=== PATIENT | female | born 1935 | race Caucasian/White ===

== ENCOUNTER 2018-12-19 20:08 | Emergency (ER) | payer MEDICARE, OTHER ==
--- NOTE | 2018-12-20 09:33 | RAD ---
TWO VIEWS OF THE RIGHT HIP: DATE: 12/19/2018. COMPARISON: None. HISTORY: Fall, trauma, pain. FINDINGS: The bones are demineralized, which limits assessment for nondisplaced fracture. There is postoperati ve hardware associated with the right femur which includes a screw traversing the femoral neck and an intramedullary cristopher extending to the level of the distal right femur. No displaced fracture/dislocat ion or evidence of hardware failure. There is atherosclerotic calcification within the medial thigh. IMPRESSION: Osteopenia limiting assessment for nondisplaced fracture. Evidence of prior open reduction internal fixation with no definite acute fracture or evidence of dislocation seen. POS: ILDA
--- NOTE | 2018-12-20 09:33 | RAD ---
FRONTAL RADIOGRAPH PELVIS: 12/19/2018 HISTORY: Fall. Trauma. Pain. COMPARISON: None. FINDINGS: There is evidence of prior open reduction and internal fixation of the proximal right femur. The bon es are demineralized, limiting assessment for a nondisplaced fracture. There appear to be fractures of the superior and inferior pubic rami on the right, age indeterminate. No widening of the sacroili ac joints or pubic symphysis. IMPRESSION: Findings suggesting age indeterminate fractures of the superior and inferior pubic rami on the right. CT examination of the pelvis suggested for further assessment. POS: CAMILA
--- NOTE | 2018-12-20 09:33 | CT ---
CT PELVIS: 12/19/2018 HISTORY: Injury. Trauma. Right hip pain. COMPARISON: None. TECHNIQUE: Axial CT imaging, at 3.75 mm intervals, through the pelvis, with coronal and sagittal reformatted irene ging. FINDINGS: There is extensive atherosclerotic calcification of the imaged abdominal aorta, as well as the arteri al structures of the pelvis. The bones are severely demineralized, which limits assessment for a nondisplaced fracture. There is no widening of the pubic symphysis or the sacroiliac joints. No discrete fracture of the sacrum is noted. There is multilevel disk space narrowing, vacuum disk formation, and facet hypertrophic change within the imaged lumbar spine. The urinary bladder is mildly distended. Distal colonic diverticulosis without evidence for divertic ulitis is seen. The patient is status post open reduction and internal fixation of the proximal right femur, with a s crew traversing the femoral neck and an intramedullary cristopher. There is an acute, minimally displaced fracture involving the anterior and lateral cortex, at the bas e of the right greater trochanter of the proximal right femur, anteriorly. This is best seen on axia l image #86 of series 400. Neither hip appears dislocated. There is an old fracture of the inferior pubic ramus and the superior pubic ramus, on the right. There is soft tissue swelling on the basis of edema, involving the quadriceps musculature on the righ t, with probable associated intramuscular hematoma, incompletely imaged on this examination. Nonobstructing calculus noted in the lower pole of the right kidney, measuring in the 3 mm range. IMPRESSION: 1. Comminuted, mildly displaced fracture seen involving the anterior cortex of the proximal right fe mur, at the anterior base of the right greater trochanter. 2. Old fractures of the superior and inferior pubic ramus on the right. 3. Swelling/enlargement of the quadriceps musculature on the right, with probable associated intramu scular hematoma. 4. Severe atherosclerotic disease. 5. Severe osteopenia. POS: CAMILA
== END 2018-12-20 00:13 | disposition home or self-care (01) ==
LOC: ERS 20:08
DX: S72.111A Displaced fracture of greater trochanter of right femur, initial encounter for closed fracture (principal); I10 Essential (primary) hypertension; F17.210 Nicotine dependence, cigarettes, uncomplicated; F03.90 Unspecified dementia, unspecified severity, without behavioral disturbance, psychotic disturbance, mood disturbance, and anxiety; Z79.899 Other long term (current) drug therapy; W18.09XA Striking against other object with subsequent fall, initial encounter
CPT/HCPCS: 72170; 72192

== ENCOUNTER 2019-05-25 01:17 | Inpatient (IN) | payer MEDICARE ==
[2019-05-25] MEDS ORDERED: Acetaminophen 325 MG TAB PO PRN ×2 (01:50→18:00)
[2019-05-25] MEDS ORDERED: traMADol HCl 50 MG TAB PO PRN ×3 (01:52→20:02)
[2019-05-25] MEDS ORDERED: Ketorolac Tromethamine 30 MG/ML VIAL ONE (01:53)
[2019-05-25] MEDS ORDERED: Morphine 2 MG/ML SYRINGE ONE (01:53)
[2019-05-25] MEDS ORDERED: Potassium Chloride 40 MEQ in Sodium Chloride 0.9% 250 ML 250 ML IVPB SCH (02:30)
[2019-05-25] MEDS ORDERED: Potassium Chloride 20 MEQ in Sodium Chloride 0.9% 250 ML 250 ML IVPB SCH (02:30)
[2019-05-25] MEDS ORDERED: hydrALAZINE 20 MG/ML VIAL SLOW IVP PRN (02:56)
[2019-05-25] MEDS ORDERED: HumaLOG 300 UNITS/3 ML VIAL SC PRN (02:56)
[2019-05-25] MEDS ORDERED: Ondansetron PF 4 MG/2 ML Vial IVP PRN (02:56)
[2019-05-25] MEDS ORDERED: Dextrose 5% in Water 1,000 ML IV PRN (02:56)
[2019-05-25] MEDS ORDERED: Dextrose 50% Abboject 50 ML SYRINGE SLOW IVP PRN (02:56)
[2019-05-25 03:05] LABS: Bacteria/HPF 3+ HPF (None Seen); Bilirubin Negative (Negative); Blood, Urine Negative (Negative); Clarity Turbid (Clear); Glucose, Urine (Dipstick) Normal (Negative); Leukocyte Negative Leu/uL (Negative); Nitrite 2+ (Negative); Protein, Urine (Dipstick) Negative (Neg-Trace); RBC/HPF 0-3 HPF (0-3); Squamous Epithelial 0-3 HPF (0-3); Urobilinogen Normal mg/dL (Less than 2); WBC/HPF 0-3 HPF (0-3)
--- NOTE | 2019-05-25 03:07 | HP ---
HISTORY OF PRESENT ILLNESS: Ms. Mcleod is an 84-year-old female who came in to evaluation of left hip pain after a fall at home. The patient's daughter reports the patient was using slipper and her slipper got caught on the carpet and she fell over. She did not lose consciousness or hit her head. After the fall, she did complain of pain from the left hip and could not walk or bear weight. The patient was transferred from [facility]. Upon arrival, the patient is awake and alert. GCS 15. Vitals stable. Complain of left hip pain. The pain is 7/10. She does not complain of any other associated symptoms. PAST MEDICAL HISTORY: The patient has a past medical history of hypertension, managed with amlodipine 10 mg a day. PAST SURGICAL HISTORY: ORIF of left shoulder, right hip, and bilateral wrists. ALLERGIES: NO KNOW ALLERGIES. CURRENT MEDICATIONS: Amlodipine 10 mg daily. REVIEW OF SYSTEMS: Noncontributory except per HPI. PHYSICAL EXAMINATION: GENERAL: The patient is lying down in bed, in no acute distress. The patient is alert, oriented x3. GCS 15. HEENT: Atraumatic. No bruising. No deformity. Pupils equally round, reactive to light. NECK: Atraumatic. Trachea midline. CHEST: Atraumatic. No bruising. No deformity. No tender to touch. LUNGS: Breath sounds clear bilaterally. CARDIOVASCULAR: Regular rate and rhythm. ABDOMEN: Soft, nondistended. Normal bowel sounds, but normal alignment. No tender to touch. EXTREMITIES: Upper extremity neurovascularly intact. Normal range of motion. Right lower extremity neurovascularly intact. Normal range of motion. Left lower extremity, left hip limited range of motion due to pain. Left lower extremity, external rotation neurovascularly intact. INITIAL LABORATORY WORKUP: From [facility] show kidney function normal. Hypokalemia. Liver function normal. EKG show normal sinus rhythm, 70 an hour. DIAGNOSES: 1. Status post mechanical ground level fall at home. 2. Left hip fracture. 3. History of hypertension, status post open reduction and internal fixation of left shoulder, open reduction and internal fixation of right hip, and bilateral wrist fracture. PLANS: The patient will be admitted to [place] [id number]. Start to initiate pain control , initiate nonpharmacology, DVT prophylaxis, initiate gastritis prophylaxis. Orthopedics, Dr. Sears, was notified per Dr. Lambert. Dr. Sears plan to see patient in the morning and schedule her to take her to go to the OR. Job ID: [id number] [facility]
[2019-05-25 03:28] LABS: #Eosinphils 0.1 thou/uL (0.0-0.7); #Lymphocytes 1.1 thou/uL (1.20-3.40); #Monocytes 0.6 thou/uL (0.11-0.59); #Neutrophils 5.4 thou/uL (1.40-6.50); %Basophils 0.2 % (0.0-1.0); %Eosinophils 0.9 % (0.0-10.0); %Lymphocytes 15.8 % (21.0-51.0); %Monocytes 7.9 % (0.0-10.0); %Neutrophils 75.2 % (42.0-75.0); Hemoglobin 12.2 g/dL (12.0-16.0); Mean Corpuscular HGB CONC 34.1 g/dL (32.0-36.0); Mean Corpuscular Hemoglobin 32.2 pg (27.0-31.0); Mean Corpuscular Volume 94.4 fL (78.0-98.0); Mean Platelet Volume 8.3 fL (7.4-10.4); Platelet Count 192 thou/uL (130-400); RBC Distribution Width 12.3 % (11.5-14.5); Red Blood Cell (RBC) Count 3.79 mill/uL (4.20-5.40); White Blood Cell (WBC) Count 7.1 thou/uL (4.8-10.8)
[2019-05-25 03:49] LABS: Anion Gap 13 mmol/L (10-20); BUN (Urea Nitrogen) 12 mg/dL (9.8-20.1); Calc. Creatinine Clearance 30 mL/min (70-130); Carbon Dioxide 22 mmol/L (23-31); Chloride 105 mmol/L (98-107); Estimated GFR-MDRD 71; Glucose 111 mg/dL (83-110); Magnesium 1.8 mg/dL (1.6-2.6); Phosphorus 3.2 mg/dL (2.3-4.7); Potassium 4.1 mmol/L (3.5-5.1); Sodium 136 mmol/L (136-145)
[2019-05-25] MEDS: Acetaminophen 1,000 MG in Premix Bag 1 BAG IVPB SCH ×3 (05:31→18:26)
[2019-05-25] MEDS: Ketorolac Tromethamine 30 MG/ML VIAL IVP SCH ×3 (05:32→19:25)
--- NOTE | 2019-05-25 07:49 | RAD ---
EXAM: CHEST ONE VIEW HISTORY: Left hip fracture COMPARISON: 02/21/2011 FINDINGS: Previously noted central venous catheter has been removed. Cardiac silhouette is magnified by project ion but probably within normal limits. Pulmonary vasculature is within normal limits. Lungs are hyperexpanded, but no consolidation or pleural fluid is seen. A few scattered calcified granulomata a re identified. Post surgical changes left proximal humerus are again seen. Osteopenia is present. Vascular calcifications are seen in the thoracic aorta. There does appear to be mild height loss of t he L1 and L2 vertebral bodies. These compression deformities were present on MR lumbar spine in 2016. IMPRESSION: No acute cardiopulmonary process.
[2019-05-25] MEDS ORDERED: ceFAZolin 1 GM/D5W 1 GM in Premix Bag 1 BAG IVPB SCH ×2 (08:45→23:00)
--- NOTE | 2019-05-25 08:59 | RAD ---
LEFT HIP TWO VIEWS: HISTORY: Left hip pain. FINDINGS: There is an intertrochanteric fracture involving the left proximal femur with associated foreshorteni ng. There are postop changes and metallic hardware in the right proximal femur. Old fractures of th e right superior and inferior pubic rami are present. IMPRESSION: Acute intertrochanteric fracture of the left femur. POS: OFF
[2019-05-25] MEDS ORDERED: Amlodipine 10 MG TAB PO SCH (09:00)
[2019-05-25] MEDS ORDERED: Famotidine/PF 20 mg/2ml Vial SLOW IVP SCH (09:00)
[2019-05-25] MEDS: Gabapentin 100 MG CAP PO SCH ×2 (09:04→22:33)
[2019-05-25] MEDS: Senokot S 8.6-50 MG TAB PO SCH ×2 (09:04→22:33)
[2019-05-25] MEDS: Polyethylene Glycol 3350 17 GM Packet PO SCH (09:04)
--- NOTE | 2019-05-25 09:20 | CON ---
DATE OF CONSULTATION: 05/25/2019 This is Amarilys Chakraborty PA-C dictating a report for Julio Sears MD. REQUESTING PHYSICIAN: Trauma Service Team. CONSULT PHYSICIAN: Julio Sears MD REASON FOR CONSULTATION: Left hip fracture. HISTORY OF PRESENT ILLNESS: This is an 84-year-old female, who is status post mechanical fall at home. The patient's daughter reports that she caught her shoe on the carpet and fell over. This was last night. She presented to the [facility] Emergency Department. She was then transferred to our facility once workup revealed a left hip fracture. We have been consulted for this reason. The patient has been able to walk or bear weight. She reports left hip pain. No numbness. No tingling. No head injury or other complaints at this time. Daughter is currently at bedside with the patient. PAST MEDICAL HISTORY: Significant for hypertension. PAST SURGICAL HISTORY: Includes ORIF of left shoulder, ORIF of right hip, and bilateral wrist surgeries. ALLERGIES: NO KNOWN DRUG ALLERGIES. FAMILY HISTORY: Reviewed and noncontributory. SOCIAL HISTORY: The patient is a half a pack a day smoker and has been for over 20 years. Denies any alcohol or illicit drug use. Her daughter lives with her. She is an independent ambulator. REVIEW OF SYSTEMS: Ten-point review of systems conducted and otherwise negative except for stated above. PHYSICAL EXAMINATION: VITAL SIGNS: Show temperature 97.7, pulse of 96, respiratory rate of 16, O2 saturation of 96% on room air, and blood pressure of 120/71. GENERAL: The patient is awake and alert. She is lying supine in bed. Her daughter is present in the hospital room at this time. She is in no apparent distress. She does answer questions appropriately. HEENT: Head is normocephalic and atraumatic. NECK: Supple. Trachea midline. LUNGS: Breathing is nonlabored. EXTREMITIES: Evaluation of all 4 extremities shows the left lower extremity to be externally rotated and shortened at this time. She is able to move her toes. Sensation intact distally. Capillary refill 3 seconds. Range of motion not assessed in this lower extremity. Other 3 extremities all evaluated. No obvious deformities are noted. No signs of injury. RADIOGRAPHIC IMAGING: X-rays were unavailable from [facility]. We have obtained new films at our facility. These show a base of the low femoral neck fracture that appears to extend somewhat intertrochanterically. There is displacement and shortening. ASSESSMENT: Left hip fracture. PLAN: The patient has been n.p.o. She has been cleared by the Trauma Service Team. We would like to proceed with surgery this afternoon. This will include a DHS device to a left hip fracture. Risks, benefits, and alternatives of surgery discussed at length with the patient and her family today. They verbalized understanding and are amenable to this plan of care. We will proceed with surgery later this afternoon. Postoperatively, she will return back to the surgical floor, where she worked with Physical and Occupational Therapy. We have discussed smoking cessation today in order for her fracture to heal appropriately. She does verbalize understanding of this. Job ID: [id number]
[2019-05-25] MEDS ORDERED: Magnesium 2 GM/50 ML 2 GM in Premix Bag 1 BAG IVPB SCH (11:00)
--- NOTE | 2019-05-25 11:06 | PRG ---
DATE OF SERVICE: 05/25/2019 84-year-old female with past medical history of hypertension, presenting for left hip fracture s/p ground level fall. SUBJECTIVE: The patient was admitted last night for a fall at home after her slipper got stuck and she tripped on the carpet. Her left hip pain is better today than yesterday. She denies any shortness of breath, chest pain, nausea, vomiting, or abdominal pain. Her daughter is present at bedside and states that she lives with the patient. The patient was going to get an x-ray this morning per Ortho's recommendations. OBJECTIVE: VITAL SIGNS: Stable. Temperature 97.8, heart rate 62, blood pressure 117/67, and saturating 96% on room air. However, later this morning she was at 92% on 2 L nasal cannula. GENERAL: Frail appearing, alert and oriented CARDIAC: Regular rate and rhythm. No murmurs. RESPIRATORY: No respiratory distress. Clear to auscultation bilaterally. ABDOMEN: Nondistended and soft. Active bowel sounds. EXTREMITIES: No edema. : Crespo catheter in place. LABORATORY DATA: WBC 7.1, hemoglobin 12.2, hematocrit 35.8, and platelets 182. Electrolytes; sodium 136, potassium 4.1, chloride 105, bicarb 22, BUN 12, creatinine 0.78, glucose 111, calcium 8.0, phosphorus 3.2, and magnesium 1.8. Hip x-ray: acute intertrochanteric fracture of the left femur. ASSESSMENT: 1. Left hip fracture, intertrochanteric 2. Hypertension. PLAN: The patient is to go to the operating room today for her left hip fracture. She is on DVT prophylaxis, gastritis prophylaxis, and on pain medicine. We will follow up with her labs tomorrow after surgery to continue management of her care. This patient was seen, examined, and discussed with Dr. Doherty on rounds, the admitting physician, who agrees with the assessment and plan Amy Cade MD PGY1 Job ID: [id number] [facility]
[2019-05-25] MEDS ORDERED: PROPOFOL 200 MG/20 ML VIAL ONE (16:59)
[2019-05-25] MEDS ORDERED: ePHEDrine 50 MG/ML VIAL ONE (16:59)
[2019-05-25] MEDS ORDERED: Ibuprofen 600 MG TAB PO SCH (18:00)
[2019-05-25] MEDS ORDERED: Fentanyl 100 MCG/2 ML VIAL ONE (20:31)
[2019-05-25] MEDS ORDERED: Propofol 1,000 MG/100 ML VIAL IV ONE (20:31)
[2019-05-25] MEDS ORDERED: Bupivacaine 0.75% W/DEXTROSE 8.25% 2 ML AMP ONE (20:31)
[2019-05-25] MEDS ORDERED: Promethazine HCl 25 MG/ML VIAL SLOW IVP PRN (22:00)
[2019-05-25] MEDS ORDERED: Ondansetron HCl/PF 4 MG/2 ML Vial IVP PRN (22:00)
[2019-05-25] MEDS ORDERED: Promethazine HCl 25 MG/ML VIAL IM PRN (22:00)
--- NOTE | 2019-05-25 22:23 | RAD ---
XR Hip Lt 2-3 View History: Hip screw placement Comparison: Radiograph same day Findings: 3 fluoroscopic images were obtained. Satisfactory appearance of a dynamic hip screw through the left femoral neck with a second partially threaded cannulated screw. Impression: Satisfactory postoperative appearance. Total fluoroscopy time: 50.8 seconds.
[2019-05-25] MEDS ORDERED: CEFAZOLIN 1 GM in Sodium Chloride 0.9% 100 ML IVPB SCH (22:30)
[2019-05-25] MEDS: Ibuprofen 600 MG TAB PO SCH (22:33)
[2019-05-25] MEDS: Atorvastatin Calcium 10 MG TAB PO SCH (22:34)
[2019-05-25] MEDS: Acetaminophen 500 MG TAB PO SCH (23:34)
--- NOTE | 2019-05-26 00:09 | PRG ---
DATE OF SERVICE: 05/25/2019 SUBJECTIVE: The patient was seen today during evening rounds. She was evaluated, status post fixation of her left hip fracture. At the time of my evaluation, the patient was resting comfortably in bed. She was easily arousable, and reported her pain was well controlled. She had not had anything to eat postoperatively, but it is late in the evening and she reported that she will have something later. She had no complaints at the time of my evaluation. OBJECTIVE: VITAL SIGNS: The patient is afebrile, hemodynamically stable, saturating 94% on room air. GENERAL: Well-appearing elderly female, lying in bed with no signs of acute distress. PULMONARY: Equal chest rise and fall. Clear breath sounds bilaterally. No signs of acute respiratory distress. CARDIAC: Bradycardic, but regular rhythm. No murmurs, gallops, or rubs. EXTREMITIES: 2+ pulses in all extremities. No significant swelling noted. Gross motor sensation is intact. NEUROLOGIC: GCS is 15. Gross motor and sensation are intact. ASSESSMENT: 1. Status post mechanical fall. 2. Left hip fracture status post repair. 3. History of hypertension. PLAN: Continue current pain regimen. The patient will be placed on a regular diet now that she is postop. The patient to work with Physical and Occupational Therapy postoperatively. We will likely need placement in acute rehab facility. Continue all home medications. Job ID: [id number]
[2019-05-26] MEDS: Acetaminophen 500 MG TAB PO SCH ×4 (04:07→23:37)
[2019-05-26] MEDS: Ibuprofen 600 MG TAB PO SCH ×3 (04:07→23:37)
[2019-05-26] MEDS: ceFAZolin 1 GM/D5W 1 GM in Premix Bag 1 BAG IVPB SCH ×3 (04:09→20:41)
[2019-05-26 05:32] LABS: #Eosinphils 0.1 thou/uL (0.0-0.7); #Lymphocytes 0.6 thou/uL (1.20-3.40); #Monocytes 0.4 thou/uL (0.11-0.59); #Neutrophils 7.3 thou/uL (1.40-6.50); %Eosinophils 0.7 % (0.0-10.0); %Lymphocytes 6.8 % (21.0-51.0); %Monocytes 4.2 % (0.0-10.0); %Neutrophils 88.3 % (42.0-75.0); Hemoglobin 11.4 g/dL (12.0-16.0); Mean Corpuscular HGB CONC 33.4 g/dL (32.0-36.0); Mean Corpuscular Hemoglobin 31.8 pg (27.0-31.0); Mean Corpuscular Volume 95.1 fL (78.0-98.0); Mean Platelet Volume 8.7 fL (7.4-10.4); Platelet Count 189 thou/uL (130-400); RBC Distribution Width 12.5 % (11.5-14.5); Red Blood Cell (RBC) Count 3.58 mill/uL (4.20-5.40); White Blood Cell (WBC) Count 8.2 thou/uL (4.8-10.8)
[2019-05-26 05:51] LABS: Anion Gap 10 mmol/L (10-20); BUN (Urea Nitrogen) 8 mg/dL (9.8-20.1); Calc. Creatinine Clearance 33 mL/min (70-130); Calcium 8.2 mg/dL (7.8-10.44); Carbon Dioxide 25 mmol/L (23-31); Chloride 105 mmol/L (98-107); Estimated GFR-MDRD 79; Glucose 116 mg/dL (83-110); Magnesium 2.1 mg/dL (1.6-2.6); Phosphorus 2.9 mg/dL (2.3-4.7); Potassium 4.1 mmol/L (3.5-5.1); Sodium 136 mmol/L (136-145)
[2019-05-26] MEDS ORDERED: Famotidine/PF 20 mg/2ml Vial SLOW IVP SCH (09:00)
[2019-05-26] MEDS: Polyethylene Glycol 3350 17 GM Packet PO SCH (09:11)
[2019-05-26] MEDS: Gabapentin 100 MG CAP PO SCH ×2 (09:11→20:40)
[2019-05-26] MEDS: Senokot S 8.6-50 MG TAB PO SCH ×2 (09:11→20:40)
[2019-05-26] MEDS: Aspirin 81 mg Enteric Coated Tablet PO SCH ×2 (09:11→20:40)
[2019-05-26] MEDS: Amlodipine 10 MG TAB PO SCH (09:11)
--- NOTE | 2019-05-26 12:23 | PRG ---
DATE OF SERVICE: 05/26/2019 84-year-old female patient who tripped on the carpet and sustained left hip fracture. Postop day #1 for repair of intertrochanteric left hip fracture. SUBJECTIVE: The patient is doing well this morning. She has walked to her door and back with physical therapy. She has not eaten this morning as she and her family did not realize they had to order breakfast. She plans on eating lunch. She would like to try the Clear Ensure supplement shakes. She states her pain is well controlled and denies any needs. OBJECTIVE: VITAL SIGNS: Temperature 98.1, pulse 74, blood pressure 123/64, respirations 14, and saturation is 93% on room air. GENERAL: Small and frail appearing, but alert and oriented. CARDIAC: Well-perfused. Regular rate and rhythm. No murmurs. RESPIRATORY: No acute respiratory distress. ABDOMEN: Nondistended, soft. EXTREMITIES: Well perfused. No edema. LABORATORY DATA: WBC 8.2, hemoglobin 11.4, hematocrit 34, and platelets 189. Sodium 136, potassium 4.1, chloride 105, carbon dioxide 25, BUN 8, creatinine 0.71, glucose 116, calcium 8.2, phosphorus 2.9, and magnesium 2.1. ASSESSMENT: An 84-year-old female, 1. Status post mechanical fall. 2. Left hip fracture, status post repair, postop day #1. 3. History of hypertension. PLAN: We will continue the patient's current pain regimen. She will continue to work with PT and OT. We will order labs again tomorrow. We plan on having her go to swing bed since her insurance is [employer]. This patient was seen, examined, and discussed with Dr. Doherty, the attending physician, who agrees with the assessment and plan. Amy Cade MD PGY1 Job ID: [id number] [facility]
[2019-05-26 13:11] VITALS: BMI 15.1
--- NOTE | 2019-05-26 20:04 | OP ---
DATE OF PROCEDURE: 05/25/2019 PREOPERATIVE DIAGNOSIS: Left intertrochanteric femur fracture. POSTOPERATIVE DIAGNOSIS: Left intertrochanteric femur fracture. PROCEDURE PERFORMED: Open reduction and internal fixation of left intertrochanteric femur fracture. ANESTHESIA: Spinal. ESTIMATED BLOOD LOSS: 50 mL. IMPLANTS: Synthes DHS system was used with a three-hole 130-degree sideplate. COMPLICATIONS: None. DRAINS: None. SPECIMEN: None. OUTCOME: Near-anatomic alignment. INDICATIONS FOR PROCEDURE: The patient is an 84-year-old lady status post ground level fall sustaining a left intertrochanteric femur fracture with displacement. After discussion with the patient and family including risks and benefits, we decided to proceed with open reduction and internal fixation. Risks included, but are not limited to bleeding, infection, nerve injury, DVT, PE, malunion, nonunion, loss of limb or life. The patient appears to understand and does wish to proceed. Family also concurs. Consent has been obtained. DESCRIPTION OF PROCEDURE: The patient was brought to the operating room and spinal anesthesia was induced, followed by placement of the patient on the operating room table with the injured extremity held in longitudinal traction and slight internal rotation. The well leg held in a scissored position to allow for AP and lateral C-arm imaging of the left hip. Next, a sterile prep and drape was performed of the left lateral thigh. An incision was made distal to the greater trochanter. After skin was sharply incised, dissection was carried down with electrocautery to the fascia raz. The fascia raz was incised in line with skin incision revealing the underlying fascia of the vastus lateralis. This was incised in line with skin incision and then the muscle belly reflected off the posterior leaflet of fascia and reflected anteriorly gaining access to lateral cortex of the femur. Next, a 130-degree guide with threaded guidewire was placed in the wound, and then, the guidewire was passed through the lateral cortex of the femur up the more inferior portion of the femoral neck into the femoral head. A second guidewire was then passed superior to the first, this to function as a derotation screw. This guidewire from the 6.5 mm cannulated screw set. Once the two guidewires were appropriately positioned as checked on C-arm imaging, measurement was taken off the superior guidewire, and a 6.5 mm, 32 mm long thread screw was passed over this guidewire to provide derotation of this very high intertrochanteric fracture. Next, a step drill was used to further prepare the track for the hip screw and then a three-hole sideplate with 80 mm hip screw was inserted into the wound. Once fully inserted, three 4.5 mm cortical screws were passed through the sideplate of the DHS device affixing the plate to the femur. Guidewires were removed and AP and lateral C-arm imaging was obtained that showed anatomic alignment of the fracture and acceptable position of hardware. The wound was then irrigated with normal saline and then closed in layers with 0 Vicryl for the fascia raz, followed by 2-0 Vicryl subcutaneously and petey for the skin. Xeroform gauze and tape dressing was applied to the thigh, and then, the patient was transferred to recovery room in stable condition. There were no complications. She tolerated the procedure well. Job ID: [id number]
[2019-05-26] MEDS: Atorvastatin Calcium 10 MG TAB PO SCH (20:40)
--- NOTE | 2019-05-27 01:07 | PRG ---
DATE OF SERVICE: 05/26/2019 The patient was seen today during evening rounds. She was resting comfortably and asleep upon my evaluation. She had no acute signs of respiratory distress. The patient is hemodynamically stable and afebrile. Saturating 93% on room air. She is status post fixation of her left intertrochanteric femur fracture. She is postoperative day 1 now. She will continue current diet and pain regimen, continue to hold home antihypertensive medications. Continue physical and occupational therapy. She is pending placement at a swing bed. Job ID: [id number]
[2019-05-27] MEDS: Ibuprofen 600 MG TAB PO SCH ×3 (05:36→21:54)
[2019-05-27] MEDS: Acetaminophen 500 MG TAB PO SCH ×3 (05:36→17:47)
[2019-05-27 05:49] LABS: #Eosinphils 0.2 thou/uL (0.0-0.7); #Monocytes 0.3 thou/uL (0.11-0.59); #Neutrophils 3.9 thou/uL (1.40-6.50); %Basophils 0.4 % (0.0-1.0); %Eosinophils 3.3 % (0.0-10.0); %Lymphocytes 18.7 % (21.0-51.0); %Monocytes 6.1 % (0.0-10.0); %Neutrophils 71.5 % (42.0-75.0); Hemoglobin 10.9 g/dL (12.0-16.0); Mean Corpuscular HGB CONC 34.2 g/dL (32.0-36.0); Mean Corpuscular Hemoglobin 32.3 pg (27.0-31.0); Mean Corpuscular Volume 94.4 fL (78.0-98.0); Mean Platelet Volume 8.6 fL (7.4-10.4); Platelet Count 167 thou/uL (130-400); RBC Distribution Width 12.6 % (11.5-14.5); Red Blood Cell (RBC) Count 3.39 mill/uL (4.20-5.40); White Blood Cell (WBC) Count 5.5 thou/uL (4.8-10.8)
[2019-05-27] MEDS: Polyethylene Glycol 3350 17 GM Packet PO SCH (07:59)
[2019-05-27] MEDS: Aspirin 81 mg Enteric Coated Tablet PO SCH ×2 (07:59→21:54)
[2019-05-27] MEDS: Senokot S 8.6-50 MG TAB PO SCH ×2 (07:59→21:54)
[2019-05-27] MEDS: Gabapentin 100 MG CAP PO SCH ×2 (07:59→21:54)
[2019-05-27] MEDS: Amlodipine 10 MG TAB PO SCH (08:00)
[2019-05-27] MEDS: Atorvastatin Calcium 10 MG TAB PO SCH (21:54)
[2019-05-28] MEDS: Acetaminophen 500 MG TAB PO SCH ×3 (00:16→11:47)
[2019-05-28 05:22] LABS: #Eosinphils 0.2 thou/uL (0.0-0.7); #Lymphocytes 1.3 thou/uL (1.20-3.40); #Monocytes 0.3 thou/uL (0.11-0.59); #Neutrophils 3.8 thou/uL (1.40-6.50); %Basophils 0.6 % (0.0-1.0); %Eosinophils 3.8 % (0.0-10.0); %Lymphocytes 22.9 % (21.0-51.0); %Monocytes 5.8 % (0.0-10.0); %Neutrophils 66.9 % (42.0-75.0); Hemoglobin 10.6 g/dL (12.0-16.0); Mean Corpuscular HGB CONC 33.5 g/dL (32.0-36.0); Mean Corpuscular Hemoglobin 31.8 pg (27.0-31.0); Mean Platelet Volume 8.7 fL (7.4-10.4); Platelet Count 183 thou/uL (130-400); RBC Distribution Width 12.6 % (11.5-14.5); Red Blood Cell (RBC) Count 3.32 mill/uL (4.20-5.40); White Blood Cell (WBC) Count 5.7 thou/uL (4.8-10.8)
[2019-05-28] MEDS: Ibuprofen 600 MG TAB PO SCH (05:43)
[2019-05-28] MEDS: Polyethylene Glycol 3350 17 GM Packet PO SCH (09:20)
[2019-05-28] MEDS: Aspirin 81 mg Enteric Coated Tablet PO SCH (09:20)
[2019-05-28] MEDS: Amlodipine 10 MG TAB PO SCH (09:20)
[2019-05-28] MEDS: Senokot S 8.6-50 MG TAB PO SCH (09:21)
[2019-05-28] MEDS: Gabapentin 100 MG CAP PO SCH (09:21)
--- NOTE | 2019-05-28 11:28 | PRG ---
DATE OF SERVICE: 05/27/2019 An 84-year-old female, postop day #2, status post left hip repair, status post ground level fall sustaining left hip fracture. SUBJECTIVE: The patient had no complaints this morning on rounds. She states her pain is well controlled. She is tolerating p.o. She is awaiting a swing bed placement, pending her insurance approval. OBJECTIVE: VITAL SIGNS: Temperature 97.7, pulse 66, respirations 14, 93% on room air, and blood pressure 112/62. GENERAL: Thin and frail appearing, but in good spirits. RESPIRATORY: No respiratory distress. Nonlabored breathing. CARDIAC: Regular rate and rhythm. No murmur. ABDOMEN: Nondistended. EXTREMITIES: Well perfused. LABORATORY DATA: WBC 5.5, hemoglobin 10.9, hematocrit 32.0, platelets 167. Sodium 136, potassium 4.1, chloride 105, carbon dioxide 25, BUN 8, creatinine 0.71, glucose 116, calcium 8.2, phosphorus 2.9, and magnesium 2.1. ASSESSMENT: 1. Status post mechanical fall. 2. Left hip fracture, status post repair, postop day #2. 3. History of hypertension. Continue supportive care and current pain regimen. Continue work with PT and OT. Await placement for swing bed. This patient was seen, examined and discussed with Dr. Doherty, the attending physician, who agrees with the assessment and plan. Amy Cade MD PGY1 Job ID: [id number] [facility]
[2019-05-28 11:38] VITALS: BP 117/67; TEMP 97.5
--- NOTE | 2019-05-28 21:28 | DIS ---
DATE OF ADMISSION: 05/25/2019 DATE OF DISCHARGE: 05/28/2019 This is Trisha Dumont NP dictating a report for Sterling Doherty DO. ADMITTING ATTENDING: Quinn Ford MD CONSULTS: Orthopedic Surgery, Dr. Sears. PROCEDURES: 1. Hip x-ray on 05/25/2019, satisfactory postoperative appearance. Total fluoroscopy time 50.8. 2. Chest x-ray on 05/25/2019, no acute cardiopulmonary process. 3. Left hip x-ray before surgical repair, impression, acute intertrochanteric fracture of the left femur. 4. On 05/25/2019, open reduction and internal fixation of a left intertrochanteric femur fracture by Dr. Sears. PRIMARY DIAGNOSIS: Mechanical fall, left intertrochanteric hip fracture. SECONDARY DIAGNOSIS: . DISCHARGE MEDICATIONS: 1. Acetaminophen 1000 mg p.o. q.6 hours. 2. Amlodipine 10 mg p.o. daily. 3. Aspirin 81 mg p.o. b.i.d. for 30 days. 4. Lipitor 10 mg p.o. at bedtime. 5. Gabapentin 100 mg p.o. b.i.d. HISTORY OF PRESENT ILLNESS AND HOSPITAL COURSE: This is an 84-year-old female who presented to the emergency room with left hip pain status post ground level fall at home. It was reported that she caught her slipper on the carpet, which caused her to fall. There was no loss of consciousness and the patient denies hitting her head. The patient was transferred from [facility] ER. The patient was evaluated in the emergency room with a GCS of 15 and stable vital signs. The patient's pain was well controlled postop. Eventually, her appetite increased. The patient was able to participate with physical therapy. On the day of discharge, the patient was examined by Dr. Doherty. The patient nor family had any complaints at that time. The patient's vital signs were stable on the day of discharge and exam was unremarkable including cardiopulmonary and GI exam. The patient was deemed stable for discharge to swing bed for continued physical and occupational therapy. DISPOSITION: Stable. DISCHARGE INSTRUCTIONS: 1. Location: Swing bed. 2. Diet: Regular diet supplement with Ensure 3 times a day. 3. Followup: Follow up with Dr. Sears as directed. No need to follow up with Trauma Services. Please call if you have any questions. 4. Activity: Orthopedic limitations, weightbearing as tolerated. This is just a summary of the patient's hospital visit. Job ID: [id number]
--- NOTE | 2019-05-31 14:39 | PRG ---
DATE OF SERVICE: The patient was seen this evening during rounds. At that time, she was resting comfortably and asleep with no signs of acute respiratory distress. She is postoperative day #2, status post ORIF of the left intertrochanteric femur fracture. No acute events during the day. She continues to work with Physical and Occupational Therapy. At the time of my evaluation, the patient is afebrile, hemodynamically stable and saturating 94% on room air. Plan is to continue her current diet and pain regimen. Continue physical and occupational therapy. She is on all of her home medications. She is pending placement at a swing bed. Job ID: [id number]
--- NOTE | 2019-06-01 10:10 | PQF ---
Date: 06-01-19 ATTN: YEMI SAUNDERS AGACNP-BC Please exercise your independent, professional judgment in responding to the clarification form. Clinical indicators are provided on the bottom of this form for your review Please check appropriate box(s): [ x ] Protein Calorie Malnutrition: [ ] Mild [ x ] Moderate [ ] Severe [ ] Other Malnutrition (please specify) __ [ ] Underweight without malnutrition [ ] Other diagnosis [ ] Unable to determine In addition, please specify: Present on Admission (POA): [x ] Yes [ ] No [ ] Unable to determine CLINICAL INDICATORS - SIGNS / SYMPTOMS / LABS 05-25-19 BMI: 12.9 PN 05/25, & (ELVIRA): frail appearing, small & frail appearing; thin & frail appearing Cath Lab Assessment 05/26: Malnutrition as evidenced by severe muscle wasting to interrosseous muscles, uadriceps, triceps & biceps; severe orbital fat pad loss; 3% weight loss compared to stated usual body weight over unknown time. RISKS: Advanced age (84; H&P 05-25-19); Smokes 1/2 ppd cigarettes (H&P 05-25-19) TREATMENT: Cath Lab assessment (05/26), Nutritional Supplement (Ensure Clear TID) Moderate Malnutrition (in acute illness) Energy Intake: <75% of estimated energy requirement for > 7 days Weight Loss: 1-2%/1 week; 5%/ 1 month; 7.5%/3 months Other: mild body fat loss; mild muscle mass loss; mild fluid accumulation; Severe Malnutrition (in acute illness) Energy Intake: < 50% of estimated energy requirement for > 5 days Weight Loss: >1-2%/1 week; >5%/1 month; >7.5%/3 months Other: moderate body fat loss; moderate muscle mass loss; moderate- severe fluid accumulation; measurably reduced fire patrol strength Moderate Malnutrition (in chronic illness) Energy Intake: <75% of estimated energy requirement for >1 month Weight Loss: 5%/1 month; 7.5%/3 months; 10%/6 months; 20%/1 year Other: mild body fat loss; mild muscle mass loss; mild fluid accumulation Severe Malnutrition (in chronic illness) Energy Intake: <75% of estimated energy requirement for >1 month Weight Loss: >5%/1 month; >7.5%/3 months; >10%/6 months; >20%/1 year Other: severe body fat loss; severe muscle mass loss; severe fluid accumulation ; measurably reduced fire patrol strength (This form is maintained as a part of the permanent medical record) 2014 [employer]. All Rights Reserved [email or web address] Office: [phone] [email or web address]
--- NOTE | 2019-06-06 03:15 | EKG ---
Test Reason : Blood Pressure : / mmHG Vent. Rate : 069 BPM Atrial Rate : 069 BPM P-R Int : 160 ms QRS Dur : 074 ms QT Int : 414 ms P-R-T Axes : 085 024 065 degrees QTc Int : 443 ms Normal sinus rhythm Possible Left atrial enlargement Low voltage QRS Cannot rule out Anterior infarct , age undetermined Abnormal ECG Confirmed by DAVID MEYER DO ([id number]), editor in chief newspaper [employer] HOBSON ([id number]) on 06/06/2019 3:14:39 AM Referred By: Confirmed By:DAVID MEYER DO
== END 2019-05-28 16:04 | DRG 481 ==
LOC: ERS 01:17 → OBSVTOIN 02:53 → SURG A 02:53
PROVIDERS: ADMIT Surgery; ATTEND Surgery
PROC: 0QS704Z Reposition Left Upper Femur with Internal Fixation Device, Open Approach (ICD-10-PCS; principal; 2019-05-25)
DX: S72.142A Displaced intertrochanteric fracture of left femur, initial encounter for closed fracture (principal); E44.0 Moderate protein-calorie malnutrition; Z68.1 Body mass index [BMI] 19.9 or less, adult; I10 Essential (primary) hypertension; F03.90 Unspecified dementia, unspecified severity, without behavioral disturbance, psychotic disturbance, mood disturbance, and anxiety; F17.210 Nicotine dependence, cigarettes, uncomplicated; W18.31XA Fall on same level due to stepping on an object, initial encounter; Y92.009 Unspecified place in unspecified non-institutional (private) residence as the place of occurrence of the external cause
CPT/HCPCS: 36415; 51702; 71045; 76000; 80048; 81003; 81015; 83735; 84100; 85025; 86850; 86900; 86901; 93005; 96361; 96374; 96375; 99406; C1713; C1769; G0390; J0131; J0690; J1885; J2270; J2704; J3010; J3475; J3480; J3490; J7050; S0028